=== PATIENT | female | born 1955 | race Caucasian/White ===

== ENCOUNTER → 2017-10-01 | Outpatient (CLI) | payer OTHER | LOC: M.RAD 08:40 | DX: Z12.31 Encounter for screening mammogram for malignant neoplasm of breast (principal) ==

== ENCOUNTER → 2017-10-05 | Outpatient (CLI) | payer OTHER | LOC: M.RAD 10-04 16:13 | DX: N63.31 Unspecified lump in axillary tail of the right breast (principal); R92.8 Other abnormal and inconclusive findings on diagnostic imaging of breast ==

== ENCOUNTER → 2017-10-08 | Outpatient (CLI) | payer OTHER | END | disposition home or self-care (01) | LOC: M.ULTRA 12:30 | DX: N60.11 Diffuse cystic mastopathy of right breast (principal); Z98.890 Other specified postprocedural states ==

== ENCOUNTER → 2017-10-28 | Outpatient (CLI) | payer OTHER | LOC: M.ULTRA 08:53 | DX: N85.8 Other specified noninflammatory disorders of uterus (principal); N95.0 Postmenopausal bleeding ==

== ENCOUNTER → 2017-11-18 | Outpatient (CLI) | payer OTHER ==
[2017-11-18 14:11] LABS: CREATININE 0.8 mg/dL (0.6-1.3)
== END ==
LOC: M.LAB 13:30 → M.MRI 14:30
PROVIDERS: Specialist
DX: N63.41 Unspecified lump in right breast, subareolar (principal); R92.8 Other abnormal and inconclusive findings on diagnostic imaging of breast

== ENCOUNTER → 2017-11-23 | Outpatient (CLI) | payer OTHER ==
--- NOTE | 2017-11-29 08:10 | PATH ---
[address] [address] PATHOLOGY RPT PROCEDURE Name: PALOMO WALSH Room: PAT Cortez#: [id number] Admission: 11/23/17 Date of : 55 Discharge: Report #: [id number] Path Case #: [id number] [facility] Accession Number: [id number] . 01 Material submitted: . RIGHT BREAST TISSUE . 01 Clinical history: . 1.3 x 1.2 cm, 1200-100 . 02 Diagnosis: Right breast tissue, 12:00 to 1:00, image-guided core biopsies: - Benign breast tissue including abundant dense fibrous tissue, with scattered luminal calcifications, negative for atypia. See comment. (TEE:edouard; 11/25/2017) QMS/11/25/2017 . 02 Comment: Reviewed with Dr. Rogelio Hernandez, who agrees with the diagnosis. . cc: Gaudencio Borrego . 02 Electronically signed: . Delta Vega MD, Pathologist NPI- [id number] . 01 Gross description: . Received in formalin labeled "Palomo Walsh, right breast 12:00 to 1:00," are multiple needle cores of yellow-brower fibrofatty tissue measuring 1.6 x 2.4 x 0.5 cm in aggregate dimensions. The tissue submitted in its entirety in cassettes A1 through A3. The cold ischemic time is 12 minutes. The total formalin fixation time is 30 hours and 18 minutes. (TSD; 11/23/2017) TOB/TOB . 02 Pathologist provided ICD-10: N63.10 . 02 CPT . [id number] Performed at: [address] [id number] MD Jak Menendez MD Phone: [phone] Performed at: [address] [id number] [place] [address] PATHOLOGY RPT PROCEDURE Name: JILLIANPALOMO [id number] Admission: 11/23/17 Date of : 55 Discharge: Report #: [id number] Path Case #: [id number] MD Delta Vega MD Phone: [phone]
== END | disposition home or self-care (01) ==
LOC: M.ULTRA 09:31
DX: N60.81 Other benign mammary dysplasias of right breast (principal); R92.1 Mammographic calcification found on diagnostic imaging of breast